=== PATIENT | female | born 1985 | race Asian ===

== ENCOUNTER 2019-01-20 10:38 | Emergency (ER) | payer OTHER ==
[~2019-01-20] VITALS: Ht 170.2 cm; Wt 64.0 kg
[2019-01-20 10:45] VITALS: Ht 170.2 cm; Wt 64.0 kg
[2019-01-20 13:10] VITALS: BP 110/65
== END 2019-01-20 13:11 | disposition home or self-care (01) ==
LOC: ED 10:38
DX: M54.16 Radiculopathy, lumbar region (principal); Z88.0 Allergy status to penicillin
CPT/HCPCS: J1100; J1885

== ENCOUNTER 2019-03-12 15:15 | Emergency (ER) | payer OTHER ==
[~2019-03-12] VITALS: Ht 170.2 cm; Wt 62.6 kg
[2019-03-12 15:53] VITALS: Ht 170.2 cm; Wt 62.6 kg
[2019-03-12 20:19] VITALS: BP 122/64
== END 2019-03-12 20:19 | disposition home or self-care (01) ==
LOC: ED 15:15
DX: F32.9 Major depressive disorder, single episode, unspecified (principal); Z88.0 Allergy status to penicillin

== ENCOUNTER 2019-12-29 18:12 | Emergency (ER) | payer OTHER ==
[~2019-12-29] VITALS: Ht 170.2 cm; Wt 64.0 kg
[2019-12-29 18:23] VITALS: BP 116/61; Ht 170.2 cm; Wt 64.0 kg
== END 2019-12-29 20:00 | disposition home or self-care (01) ==
LOC: ED 18:12
DX: R60.0 Localized edema (principal); G89.29 Other chronic pain; M54.9 Dorsalgia, unspecified; Z88.0 Allergy status to penicillin
CPT/HCPCS: Q0092